=== PATIENT | male | born 1950 | race Caucasian/White ===

== ENCOUNTER 2017-05-05 10:44 | Outpatient (CLI) | payer MEDICARE ==
[~2017-05-05] VITALS: Ht 182.9 cm; Wt 63.6 kg
--- NOTE | ~2017-05-05 | HEMODYNAMI ---
PATIENT:CANDI NEWTON MEDICAL RECORD: [id number] : 46 LOCATION:[facility] ADMISSION DATE: 05/05/17 Generatedon:05/05/201714:15 Patient name: CANDI NEWTON Patient #: [id number] SSN: : 1950 Date of study: 05/05/2017 Page: Of Hemodynamic Procedure Report Patient Data Patient Demographics Procedure consent was obtained First Name: CANDI Gender: Male Last Name: AMAN : 1950 Patient #: [id number] Age: 67 year(s) Race: Unknown Additional ID: [id number] Contact details [address]: [address] [place] [address] State: [place] City: [place] Zip code: [address] Past Medical History Allergies Allergen Reaction Date Comments Reported Other allergy 05/05/2017 iodine, shellfish Admission Admission Data Admission Date: 05/05/2017 Admission Time: 10:44 Lab Results Lab Result Date: 05/05/2017 Lab Result Time: 0:00 Biochemistry Name Units Result Min Max BUN mg/dl 19 --(----)*- 7 18 Creatinine mg/dl 1.2 --(---*)-- 0.6 1.3 CBC Name Units Result Min Max Hemoglobin g/dl 12.5 *-(----)-- 13.5 17.5 Procedure Procedure Types Cath Procedure Diagnostic Procedure [facility] w/Coronaries PCI Procedure Coronary Stent Initial Miscellaneous Procedures Moderate Sedation up to 45 minutes Procedure Description Procedure Date Procedure Date: 05/05/2017 Procedure Start Time: 13:26 Procedure End Time: 14:09 Procedure Staff Name Function Patrick Koo MD Performing Physician Sierra Alfaro RT Scrub Brenda Mccord RN Nurse Ariadna Andrade RT Monitor Indication Angina Procedure Data Cath Procedure Fluoroscopy Diagnostic fluoroscopy Total fluoroscopy Time: time: 13.6 min 13.6 min Diagnostic fluoroscopy Total fluoroscopy dose: dose: 1236 mGy 1236 mGy Contrast Material Contrast Material Type Amount (ml) Isovue 300 216 Entry Location Entry Primary Successful Side Size Upsize Upsize Entry Closure Succes sful Closure Location (Fr) 1 (Fr) 2 (Fr) Remarks Device Remarks Femoral Right 5 Fr 6 Fr Exoseal artery Short Estimated blood loss: 5 ml Diagnostic catheters Device Type Used For End Catheter Placement Diagnostic Infinity 5Fr Right Coronary AR 1 MOD catheter Angiography Diagnostic Infinity 5Fr Right Coronary AL 1 catheter Angiography Diagnostic Infinity 5Fr Right Coronary LCB catheter Angiography Diagnostic Infinity 5Fr Right Coronary MPA-2 catheter Angiography Diagnostic Infinity 5Fr Right Coronary JR 4 catheter Angiography Procedure Complications No complications Procedure Medications Medication Administration Route Dosage Oxygen NC 2 l/min Heparin Flush Bag added to field 2 bags (1000units/500ml NS) Lidocaine 2% added to field 20 Radial Cocktail added to field 1 syringe (Verapomil 2mg/Nitro 400mcg/Heparin 1500units) Fentanyl I.V. 50 mcg Versed I.V. 1 mg Heparin Bolus I.V. 4000 units Integrilin (Bolus I.V. 5.6 ml 2mg/ml) Hemodynamics Rest HGB: 12.5 (g/dl) Heart Rate: 58 (bpm) Pressure Samples Time Site Value (mmHg) Purpose Heart Use Rate(bpm) 13:56 LV 114/7,-38 Snapshot 79 13:56 AO 127/71(96) Pullback 78 13:56 LV 129/12,15 Pullback 78 Gradients Valve Time Site 1 Site 2 Mean SEP/DFP Peak To Heart Use (mmHg) (sec/min) Peak Rate (mmHg) (bpm) Aortic 13:56 LV AO 2 19 2 78 129/12,15 127/71(96) Calculations Valve P-P Mean Valve Index Valve Source Name Gradient Area Flow (cm2) Aortic 2 2 2 2 Snapshots Pre Cath Intra NCS Post Cath Vital Signs Time Heart Resp SPO2 NIBP (mmHg) Rhythm Pain Sedation Rate (ipm) (%) Status Level (bpm) 13:19:46 58 14 100 159/80(104) NSR 0 (11) 10(A) , No pain 13:24:00 64 16 99 151/89(125) NSR 0 (11) 9(A) , No pain 13:28:12 70 17 95 139/79(119) NSR 0 (11) 9(A) , No pain 13:32:19 69 20 95 121/81(102) NSR 0 (11) 9(A) , No pain 13:36:19 81 18 93 137/87(109) NSR 0 (11) 9(A) , No pain 13:40:27 80 16 93 137/81(120) NSR 0 (11) 9(A) , No pain 13:44:35 79 16 94 135/76(115) NSR 0 (11) 9(A) , No pain 13:48:43 83 17 94 137/76(105) NSR 0 (11) 9(A) , No pain 13:52:48 80 24 93 132/84(113) NSR 0 (11) 9(A) , No pain 13:56:54 78 17 94 126/76(109) NSR 0 (11) 9(A) , No pain 14:00:58 78 19 93 131/79(109) NSR 0 (11) 9(A) , No pain 14:05:04 77 18 95 134/77(118) NSR 0 (11) 9(A) , No pain 14:09:10 74 20 97 141/82(117) NSR 0 (11) 9(A) , No pain Medications Time Medication Route Dose Verified Delivered Reason Note s Effectiveness by by 13:18:12 Oxygen NC 2 l/min Brenda Brenda used for Mccord Mccord prototype deicer assembler RN 13:18:21 Heparin Flush added 2 bags Brenda Brenda used for Bag to Mccord Mccord procedure (1000units/500ml RN RN NS) 13:18:29 Lidocaine 2% added 20ml Brenda Brenda used for to vial Mccord Mccord procedure field RN RN 13:18:40 Radial Cocktail added 1 Brenda Brenda used for (Verapomil to syringe Mccord Mccord procedure 2mg/Nitro field RN RN 400mcg/Heparin 1500units) 13:24:00 Versed I.V. 1 mg Brenda Brenda for sedation Mccordrolf Mccord RN RN 13:24:55 Fentanyl I.V. 50 mcg Brenda Brenda for sedation Mccord Mccord RN RN 14:01:51 Integrilin I.V. 5.6ml Brenda Brenda for 4.4m l (Bolus 2mg/ml) Mccord Mccord anticoagulation integrilin RN RN wasted 14:01:51 Heparin Bolus I.V. 4000 Brenda Brenda for units Suri Mccord anticoagulation RN hand cloth folder Log Time Note 12:58:49 Informed consent obtained and on chart 12:58:58 Diagnostic Cath Status : Elective 12:59:22 Indication : Angina 13:02:32 Sierrasonia Alfaro RT(R) sent for patient. Start room use. 13:02:33 Time tracking: Regular hours 13:02:38 Plan of Care:Hemodynamics will remain stable., Cardiac rhythm will remain stable., Comfort level will be maintained., Respiratory function will remain adequate., Patient/ family verbilizes understanding of procedure., Procedure tolerated without complication., Recovers from procedure without complications.. 13:08:22 Patient received from Pre/Post Procedure Room to [facility] 2 Alert and oriented. Tansferred to table in Supine position. 13:08:24 Warm blankets applied, and allen hugger turned on for patient comfort. 13:08:24 Correct patient and procedure confirmed by team. 13:08:25 ECG and BP/O2 sat monitors applied to patient. 13:18:12 Oxygen 2 l/min NC was administered by Brenda Mccord RN; used for procedure; 13:18:21 Heparin Flush Bag (1000units/500ml NS) 2 bags added to field was administered by Brenda Mccord RN; used for procedure; 13:18:29 Lidocaine 2% 20ml vial added to field was administered by Brenda Mccord RN; used for procedure; 13:18:34 Vital chart was started 13:18:35 Baseline sample Acquired. 13:18:39 Rhythm: sinus rhythm 13:18:40 Radial Cocktail (Verapomil 2mg/Nitro 400mcg/Heparin 1500units) 1 syringe added to field was administered by Brenda Mccord RN; used for procedure; 13:18:40 Full Disclosure recording started 13:19:16 H&P Date Dictated: 05/05/2017 H&P Addendum completed by physician on day of procedure. (MUST COMPLETE FOR ALL OUTPATIENTS), New H&P dictated by physician.. 13:19:17 Pre-procedure instructions explained to patient. 13:19:18 Pre-op teaching completed and patient verbalized understanding. 13:19:19 Family in waiting room. 13:19:20 Patient NPO since Midnight. 13:19:37 Patient allergic to Other allergyiodine, shellfish 13:19:43 Is the patient allergic to Iodine/contrast media? Yes. 13:19:44 Was the patient premedicated? Yes 13:20:03 Is patient on blood thinner?No 13:20:05 Patient diabetic? No. 13:20:09 Previous problem with sedation/anesthesia? No ? 13:20:15 Snore? Yes 13:20:16 Sleep apnea? No 13:20:17 Deviated septum? No 13:20:18 Opens mouth fully? Yes 13:20:19 Sticks out tongue? Yes 13:20:22 Airway obstruction? No ? 13:20:25 Dentures? No ? 13:20:30 Pre procedure: right dorsailis pedis pulse 1+ Palpable, but thready & weak; easily obliterated 13:20:33 Pre procedure: left dorsailis pedis pulse Doppler 13:20:36 Patient pain scale 0/10 ?. 13:20:45 IV patent on arrival in left forearm with 0.9% NaCl at [facility]. 13:23:25 Lab Result : BUN 19 mg/dl 13:23:25 Lab Result : Hemoglobin 12.5 g/dl 13:23:25 Lab Result : Creatinine 1.2 mg/dl 13:23:29 Lab results completed and on chart. 13:23:33 Right Radial & Right Groin area was prepped with chlora-prep and draped in sterile fashion 13:23:34 Alarms reviewed by R. N. 13:23:34 Sharps counted by scrub and verified by R.N. 13:23:35 Physician arrived 13:23:36 --------ALL STOP TIME OUT------ 13:23:36 Final Timeout: patient, procedure, and site verified with staff and physician. All members of the team are in agreement. 13:23:38 Right Radial & Right Groin site verified by team. 13:23:41 Physical assessment completed. ASA score P 2 - A patient with mild systemic disease as per Patrick Koo MD. 13:23:45 Sedation plan: IV Moderate Sedation Versed, Fentanyl 13:23:48 Use device set Radial Dx 13:23:49 Acist Syringe opened to sterile field. 13:23:49 Medline Cath Pack opened to sterile field. 13:23:50 Bag Decanter opened to sterile field. 13:23:50 Terumo 6Fr Slender Glidesheath opened to sterile field. 13:23:50 St Praful 260cm J .035 wire opened to sterile field. 13:23:51 Acist Hand Control opened to sterile field. 13:23:51 Acist Manifold opened to sterile field. 13:23:52 Tegaderm 4 x 4 opened to sterile field. 13:23:52 MBrace Wrist Support opened to sterile field. 13:24:00 Versed 1 mg I.V. was administered by Brenda Mccord RN; for sedation; 13:24:55 Fentanyl 50 mcg I.V. was administered by Brenda Mccord RN; for sedation; 13:26:16 Procedure started. 13:26:21 Local anesthetic to right radial artery with Lidocaine 2% by Patrick Koo MD.INITIAL ACCESS ONLY 13:26:41 Zero performed for pressure channel P1 13:31:38 unable to gain radial access; preparing for femoral access 13:31:53 Terumo 6Fr Berwyn Sheath opened to sterile field. 13:32:09 Local anesthetic to right femoral artery with Lidocaine 2% by Patrick Koo MD.ADDITIONAL ACCESS 13:32:18 A 5 Fr sheath was inserted into the Right Femoral artery 13:32:32 Diagnostic Infinity 5Fr Multipack catheter opened to sterile field. 13:32:39 5 Fr jl 4 guide catheter was inserted over the wire 13:34:10 LCA angiography performed. 13:34:13 Injector settings: Ml/sec: 3, Volume: 6, 13:36:12 Catheter removed. 13:36:19 5 Fr 3drc guide catheter was inserted over the wire 13:38:14 Catheter removed. unable to cannulate vessel. 13:40:04 A Diagnostic Infinity 5Fr AR 1 MOD catheter was advanced over the wire and used for Right Coronary Angiography. 13:41:38 Catheter removed. unable to cannulate vessel. 13:42:17 A Diagnostic Infinity 5Fr AL 1 catheter was advanced over the wire and used for Right Coronary Angiography. 13:43:33 Catheter removed. unable to cannulate vessel. 13:44:45 A Diagnostic Infinity 5Fr LCB catheter was advanced over the wire and used for Right Coronary Angiography. 13:46:57 Catheter removed. unable to cannulate vessel. 13:48:32 A Diagnostic Infinity 5Fr MPA-2 catheter was advanced over the wire and used for Right Coronary Angiography. 13:50:39 Catheter removed. unable to cannulate vessel. 13:53:02 A Diagnostic Infinity 5Fr JR 4 catheter was advanced over the wire and used for Right Coronary Angiography. 13:54:19 RCA angiography performed. 13:54:22 Injector settings: Ml/sec: 3, Volume: 6, 13:54:50 Catheter removed. 13:55:21 Terumo 6Fr Berwyn Sheath opened to sterile field. 13:55:22 Terumo TR Band Standard opened to sterile field. 13:55:23 Merit BasixCompak Inflation Kit opened to sterile field. 13:55:51 5 Fr pigtail guide catheter was inserted over the wire 13:56:17 Trifecta Investment Partnersisper J 300cm 0.014 guide wire opened to sterile field. 13:56:32 LV hemodynamics recorded. 13:56:33 LV gram done using TENA 13:56:36 Injector settings: Ml/sec: 5, Volume: 15, 13:56:41 EF : 55 % 13:56:53 Proceeding to intervention. 13:57:33 Sheath upsized to a 6 Fr Short. 13:57:46 Cordis 6FR XBLAD 3.5 guide catheter opened to sterile field. 13:57:56 6 Fr xblad 3.5 guide catheter was inserted over the wire 13:58:42 whisper wire advanced. 14:00:07 Wire advanced across lesion. 14:01:51 Integrilin (Bolus 2mg/ml) 5.6ml I.V. was administered by Brenda Mccord RN; for anticoagulation; 4.4ml integrilin wasted 14:01:51 Heparin Bolus 4000 units I.V. was administered by Brneda Mccord RN; for anticoagulation; 14:05:16 Inflation Number: 1 A Medtronic Integrity 3.5 X 12 stent was prepped and advanced across the Prox LAD. The stent was deployed at 14 FESTUS for 0:10 (min:sec). 14:05:56 Stent catheter was removed intact over wire. 14:06:02 Wire removed. 14:06:02 Guide catheter removed. 14:07:05 Cordis 6Fr Exoseal opened to sterile field. 14:07:20 Sheath removed intact; hemostasis achieved with Exoseal to the Right Femoral artery. 14:07:22 Procedure ended.(Physican Out) 14:07:38 Fluoroscopy time 13.60 minutes. 14:07:45 Fluoroscopy dose: 1236 mGy 14:07:45 Flurop Dose total: 1236 14:07:49 Contrast amount:Isovue 300 216ml. 14:07:51 Sharps counted by scrub and verified by R.N. 14:08:28 Insertion/operative site no bleeding no hematoma. 14:08:33 Post-op/insertion site Right Femoral artery dressed using a 4 x 4 and Tegaderm. 14:08:36 Post right femoral artery:stable 14:08:41 Post procedure rhythm: unchanged. 14:08:44 Estimated blood loss: 5 ml 14:08:45 Post procedure instruction explained to patient.Patient verbalizes understanding. 14:08:45 Patient needs reinforcement of post procedure teaching. 14:09:14 Procedure type changed to Cath procedure, Diagnostic procedure, LHC, LHC w/Coronaries, PCI procedure, Coronary Stent Initial, Miscellaneous Procedures, Moderate Sedation up to 45 minutes 14:09:41 Procedure and supply charges have been captured, reviewed, submitted and are correct. 14:09:45 Procedure Complication : No complications 14:09:47 Vital chart was stopped 14:09:48 See physician's report for complete and final results. 14:09:51 Report given to Pre/Post Procedure Room. 14:09:54 Patient transfered to Pre/Post Procedure Room with Stretcher. 14:09:56 Procedure ended. 14:09:56 Full Disclosure recording stopped 14:10:08 ACC-PCI Only Patient was given prescriptions, or instructed by Patrick Koo MD to start/continue the following medications upon discharge: Plavix 14:10:09 End room use (Document Last) Intervention Summary Intervention Notes Time ActionType Lesion and Equipment Action# Pressure Duration Attributes Used 14:05:16 Place stent Prox LAD Medtronic 1 14 00:10 Integrity 3.5 X 12 stent Device Usage Item Name Manufacture Quantity Catalog Hospital Part Current Minimal Lot# / Number Charge Number Stock Stock Serial# Code Acist Acist 1 87669 796847 423172 992494 20 Syringe Medical Systems Inc Medline Cardinal 1 [id number] 794328 81432 431456 5 Cath Pack Health Bag Microtek 1 2001S 801292 39949 787113 5 Decanter Medical Inc. Terumo 6Fr Terumo 1 [id number] 772049 946664 445714 [address] St Praful 1 954908 043325 602539 526817 30 260cm J .035 wire Acist Hand Acist 1 71273 476746 611207 638477 5 Control Medical Systems Inc Acist Acist 1 44618 355190 926298 818884 5 Manifold Medical Systems Inc Tegaderm 4 3M 1 1626W 994113 700367 891845 5 x 4 MBrace Advanced 1 140-0250-00 789535 71031 549183 5 Wrist Vascular Support Dynamics Terumo 6Fr Terumo 2 [id number] 880071 048088 896347 40 Berwyn Sheath Diagnostic Cardinal 1 [id number] 574989 28385 259927 30 [facility] 5Fr Multipack catheter Diagnostic Cardinal 1 [id number] 900169 151171 450306 15 Liquid [employer] [facility] 5Fr AR 1 MOD catheter Diagnostic Cardinal 1 [id number] 579666 206369 416264 15 Pearl's Premium 5Fr AL 1 catheter Diagnostic Cardinal 1 [id number] 266984 644037 893661 5 [facility] 5Fr LCB catheter Diagnostic Cardinal 1 [id number] 134306 335030 980288 5 [facility] 5Fr MPA-2 catheter Diagnostic Cardinal 1 [id number] 014823 379263 378616 5 [facility] 5Fr JR 4 catheter Terumo TR Terumo 1 [id number] 468534 130356 079671 40 Band Standard Merit Merit 1 HE4615 391376 095207 064743 15 Basix[facility] HospitalTor[facility] Group Medical Inflation Kit Dahl Dahl 1 [id number] 536643 064747 571828 5 Whisper J Vascular 300cm 0.014 guide wire Cordis 6FR Cardinal 1 [id number] 312550 491407 794298 10 XBLAD 3.5 Health guide catheter Medtronic Medtronic 1 [id number] 446372 076489 2 [id number] Integrity 3.5 X 12 stent Cordis 6Fr Cardinal 1 EX600 256493 175208 963628 10 BioScrip Signature Audit [place] Stage Time Signature Unsigned Intra-Procedure 05/05/2017 Ariadna Andrade 2:15:24 PM RT(R) Signatures Monitor : Ariadna Andrade RT Signature : Date : Time : [place] [id number] [place] [address]
[2017-05-05] MEDS ORDERED: CARDIZEM CD180 MG PO (10:56)
[2017-05-05] MEDS ORDERED: BAYER CHEWABLE81 MG PO (10:56)
[2017-05-05] MEDS ORDERED: LIPITOR80 MG PO (10:56)
[2017-05-05] MEDS ORDERED: HYDROCODONE-APA1 TAB PO (10:57)
[2017-05-05] MEDS ORDERED: NEURONTIN 300300 MG PO (10:58)
[2017-05-05 11:06] VITALS: BP 154/82; Ht 182.9 cm; Wt 63.6 kg
[2017-05-05 11:15] LABS: BASOPHILS 0 % (0-2); EOSINOPHILS 0 % (0-7); HEMATOCRIT 36.4 % (42.0-54.0); HEMOGLOBIN 12.5 g/dL (13.5-17.5); IMMATURE GRANULOCYTES 0.1 % (0-5); LYMPHOCYTES 4.5 % (15-50); MCH 27.4 pg (26.0-34.0); MCHC 34.3 g/dL (31.0-37.0); MCV 79.6 fL (80.0-100.0); MEAN PLATELET VOLUME 9.4 fL (7.4-10.4); MONOCYTES 1.6 % (2-11); NEUTROPHILS 93.8 % (40-80); PLATELET COUNT 321 10x3/uL (130-400); RBC 4.57 10x6/uL (4.20-6.10); RDW 17.5 % (11.5-14.5); WBC 9.5 10x3/uL (4.8-10.8)
[2017-05-05 11:47] LABS: ANION GAP 12.9 mmol/L (8-16); CALCIUM 9.3 mg/dL (8.5-10.1); CARBON DIOXIDE 26.1 mmol/L (21.0-32.0); CREATININE - SERUM 1.2 mg/dL (0.6-1.3)
[2017-05-05] MEDS ORDERED: PLAVIX75 MG PO (14:18)
--- NOTE | 2017-05-05 14:45 | NUR ---
2L NC, NO RESP DISTRESS NOTED. RIGHT GROIN 6F EXOSEAL CDI, NO BLEEDING OR HEMATOMA NOTED. DENIES ANY CHEST PAIN OR NAUSEA AT THIS TIME. VSS. INSTRUCTED PT TO KEEP HEAD FLAT ON PILLOW AND RIGHT LEG STRAIGHT.
--- NOTE | 2017-05-05 15:15 | NUR ---
RIGHT GROIN 6F EXOSEAL CDI, NO BLEEDING OR HEMATOMA NOTED. 2L NC, NO RESP DISTRESS NOTED. VSS. DENIES ANY CHEST PAIN OR NAUSEA. WILL CONTINUE TO MONITOR.
--- NOTE | 2017-05-05 15:30 | NUR ---
RESTING QUIETLY WITH EYES CLOSED. 2L NC, NO RESP DISTRESS. RIGHT GROIN 6F EXOSEAL CDI, NO BLEEDING OR HEMATOMA NOTED. VSS. CALL LIGHT WITHIN REACH.
--- NOTE | 2017-05-05 16:00 | NUR ---
2L NC, NO RESP DISTRESS NOTED. RIGHT GROIN 6F EXOSEAL CDI, NO BLEEDING OR HEMATOMA NOTED. NO C/O CHEST PAIN OR NAUSEA. VSS. CALL LIGHT WITHIN REACH.
--- NOTE | 2017-05-05 16:30 | NUR ---
2L NC, NO RESP DISTRESS NOTED. RIGHT GROIN 6F EXOSEAL CDI, NO BLEEDING OR HEMATOMA NOTED. NO C/O PAIN OR NAUSEA. VSS. WILL CONTINUE TO MONITOR.
--- NOTE | 2017-05-05 17:42 | NUR ---
HOB ELEVATED 30 DEGREES, NO BLEEDING NOTED TO RIGHT GROIN. SANDWICH TRAY AND DRINK GIVEN. NO C/O NAUSEA.
--- NOTE | 2017-05-05 18:03 | NUR ---
LEFT AC PIV D/C'D WITH CATHETER INTACT, BAND AID TO SITE. UP TO BEDSIDE TO GET DRESSED.
--- NOTE | 2017-05-05 18:10 | NUR ---
DISCHARGE INSTRUCTIONS GIVEN, VERBALIZED UNDERSTANDING.
--- NOTE | 2017-05-05 18:17 | NUR ---
TAKEN OUT VIA WHEELCHAIR BY CATH LEGAL ADMINISTRATIVE ASSISTANT. LEFT FACILITY WITH FAMILY MEMBER AND ALL PERSONAL BELONGINGS.
--- NOTE | 2017-05-06 13:55 | OP ---
PATIENT NAME: CANDI NEWTON MEDICAL RECORD: [id number] :46 LOCATION:D.CAT ADMISSION DATE: SURGEON: LACY RODRIGUEZ MD DATE OF OPERATION: 05/05/2017 PROCEDURE: Left heart catheterization, selective coronary angiography, right femoral artery approach. CATHETERS: A 5-[place] sheath, 5/4 left and right Justyn, 5/4 pig. The procedure was well tolerated. The patient was returned to [facility] after PTCA stenting of the LAD. FINDINGS: Left ventriculography in 30-degree TENA view: Normal wall motion, normal systolic function. CORONARY ANATOMY: LEFT MAIN: Left main is a short vessel, free of disease. LAD: In its proximal portion has an eccentric discrete 80% stenosis best seen in the TENA cranial view. CIRCUMFLEX: Small circumflex free of disease. RIGHT CORONARY: A very high anterior takeoff engaged with a JR5, but without significant disease. IMPRESSION: Single-vessel disease involving left anterior descending. PLAN: Intervention of this vessel momentarily. DESCRIPTION OF PROCEDURE: A 5-[place] sheath was exchanged for a 6-[place] sheath, XB LAD guiding catheter provided good catheter support. A 300 cm Harriet XT wire was placed across the site occluded LAD down this portion of vessel. Stent deployed was a 3.5 x 12 mm Integrity nondrug-eluting stent to 14 atmospheres for 45 seconds. Final angiography shows excellent resolution of 80% eccentric stenosis, no significant residual. LESLIE flow was 3 throughout the procedure. Integrilin was used in the case. Plavix was loaded in the lab. TRANSINT:[id number] Voice Confirmation ID: [id number] DOCUMENT ID: [id number] LACY RODRIGUEZ MD at 1355 CC: [id number] DICTATION DATE: 05/05/17 1413 DISPATCH MACHINE RUNNER: 05/05/171999 [facility] CLI 05/05/17 [place] [id number]
--- NOTE | 2017-05-06 13:55 | HP ---
PATIENT: CANDI NEWTON MEDICAL RECORD: [id number] ACCOUNT: [id number] LOCATION:JIMY : 46 ADMISSION DATE: 05/05/17 HISTORY AND PHYSICAL EXAMINATION HISTORY OF PRESENT ILLNESS: A 67-year-old gentleman with history of peripheral vascular disease, hypertension, hypercholesterolemia been presenting with classic chest tightness and pressure with exertion related with stress. No rest symptomatology though progressive course over the past month. He has some baseline dyspnea, although it is different from his previous status post resection for lung carcinoma. MEDICATIONS: Include atorvastatin 80 daily, diltiazem 180 daily and gabapentin 300 daily. PHYSICAL EXAMINATION: GENERAL: Pleasant gentleman, in no acute distress. HEENT: Normocephalic and atraumatic. NECK: No JVD or bruit. HEART: Regular. LUNGS: Mishra clear. ABDOMEN: Soft, nontender. EXTREMITIES: Pulses 2+. There is no edema. IMPRESSION: Exertional angina, progressive. PLAN: For diagnostic angiography. This in an interim H&P from previous H&P from the office. TRANSINT:[id number] Voice Confirmation ID: [id number] DOCUMENT ID: [id number] LACY RODRIGUEZ MD at 1355 CC: [id number] DICTATION DATE: 05/05/17 1411 EXPEDITION SUPERVISOR: 05/05/17 1637 [facility] CLI 05/05/17 [place] [id number] [place] [address]
== END 2017-05-05 18:17 | disposition home or self-care (01) ==
LOC: D.CATH 10:44
PROVIDERS: Internal Medicine Interventional Cardiology
DX: I20.9 Angina pectoris, unspecified (principal); I73.9 Peripheral vascular disease, unspecified; E78.5 Hyperlipidemia, unspecified; I10 Essential (primary) hypertension; R06.00 Dyspnea, unspecified; Z01.812 Encounter for preprocedural laboratory examination

== ENCOUNTER 2018-08-15 05:35 | Observation (INO) | payer OTHER ==
[2018-08-15 06:34] LABS: APPEARANCE CLEAR (CLEAR); BILIRUBIN NEGATIVE (NEGATIVE); COLOR YELLOW (YELLOW); GLUCOSE NEGATIVE (NEGATIVE); KETONE NEGATIVE (NEGATIVE); NITRITE NEGATIVE (NEGATIVE); PROTEIN NEGATIVE (NEGATIVE); UROBILINOGEN NORMAL (NORMAL)
[2018-08-15 09:48] LABS: BASOPHILS 0 % (0-2); EOSINOPHILS 0.9 % (0-7); HEMATOCRIT 42.7 % (42.0-54.0); HEMOGLOBIN 14.5 g/dL (13.5-17.5); IMMATURE GRANULOCYTES 0.3 % (0-5); LYMPHOCYTES 8.5 % (15-50); MCH 29.2 pg (26.0-34.0); MCV 86.1 fL (80.0-100.0); MEAN PLATELET VOLUME 10.1 fL (7.4-10.4); MONOCYTES 1.8 % (2-11); NEUTROPHILS 88.5 % (40-80); PLATELET COUNT 294 10x3/uL (130-400); RBC 4.96 10x6/uL (4.20-6.10); RDW 17.4 % (11.5-14.5)
[2018-08-15 09:53] LABS: ANION GAP 16.9 mmol/L (8-16); CALCIUM 8.4 mg/dL (8.5-10.1); CARBON DIOXIDE 25.8 mmol/L (21.0-32.0); CREATININE - SERUM 1.2 mg/dL (0.6-1.3); POTASSIUM - SERUM 4.7 mmol/L (3.5-5.1)
[2018-08-16 05:54] LABS: BASOPHILS 0.1 % (0-2); EOSINOPHILS 0 % (0-7); HEMATOCRIT 42.2 % (42.0-54.0); HEMOGLOBIN 14.4 g/dL (13.5-17.5); IMMATURE GRANULOCYTES 0.3 % (0-5); LYMPHOCYTES 6.1 % (15-50); MCH 29.4 pg (26.0-34.0); MCHC 34.1 g/dL (31.0-37.0); MCV 86.3 fL (80.0-100.0); MONOCYTES 3.7 % (2-11); NEUTROPHILS 89.8 % (40-80); PLATELET COUNT 282 10x3/uL (130-400); RBC 4.89 10x6/uL (4.20-6.10); RDW 17.4 % (11.5-14.5)
[2018-08-16 06:02] LABS: WBC 11.6 10x3/uL (4.8-10.8)
[2018-08-16 06:19] LABS: ALBUMIN 2.7 g/dL (3.4-5.0); ANION GAP 12.2 mmol/L (8-16); BILIRUBIN - TOTAL 0.22 mg/dL (0.2-1.3); CALCIUM 8.4 mg/dL (8.5-10.1); CARBON DIOXIDE 28.5 mmol/L (21.0-32.0); CREATININE - SERUM 1.1 mg/dL (0.6-1.3); POTASSIUM - SERUM 4.7 mmol/L (3.5-5.1); PROTEIN - SERUM 6.5 g/dL (6.4-8.2)
== END 2018-08-16 16:20 | disposition home or self-care (01) ==
LOC: D.ER 05:35 → D.M2 05:52
PROVIDERS: Family Medicine; Family Medicine Adult Medicine; Internal Medicine Interventional Cardiology
DX: I25.119 Atherosclerotic heart disease of native coronary artery with unspecified angina pectoris (principal); Z95.5 Presence of coronary angioplasty implant and graft; I10 Essential (primary) hypertension; R79.89 Other specified abnormal findings of blood chemistry; F14.10 Cocaine abuse, uncomplicated; Z86.73 Personal history of transient ischemic attack (TIA), and cerebral infarction without residual deficits; Z85.118 Personal history of other malignant neoplasm of bronchus and lung